=== PATIENT | male | born 1945 | race Caucasian/White ===

== ENCOUNTER 2017-11-19 13:09 | Inpatient (IN) | payer OTHER ==
[~2017-11-19] VITALS: Ht 177.8 cm; Wt 88.0 kg
--- NOTE | ~2017-11-19 | EKG ---
[place] [address] [facility] [place] [address] ELECTROCARDIOGRAM REPORT Name: TANXI Cristian Room [facility]: [facility] [id number] Admission: 11/19/17 Attend Phys: Discharge: Date of : 47 Report #: [id number] THIS REPORT FOR: //name// [facility] ED Test Date: 2017-11-19 Test Time: 13:51:33 Pat Name: XI MADDOX Department: Room: Gender: M Beater Engineer: KISHAN : 1945 Requested By: George Wood Order Number: [id number] MD: Jono Mancia Measurements Intervals [place] Rate: 91 P: 25 CT: 195 QRS: 30 QRSD: 118 T: -5 QT: 371 QTc: 457 Interpretive Statements Sinus rhythm Nonspecific intraventricular conduction delay Borderline ST elevation, anterior leads No previous ECG available for comparison Electronically Signed On 11-19-2017 15:34:54 RESIDENT MANAGER by Jono Mancia [email or web address] <ELECTRONICALLY SIGNED> By: Jono Mancia MD 11/19/17 1534 1351 1351 Jono Mancia MD /BREE
--- NOTE | ~2017-11-19 | H ---
[facility] [address] HISTORY AND PHYSICAL Name: XI MADDOX Room #: 401-I ADM IN M.R.#: [id number] Admission: 11/19/17 Attend Phys: Marco Adams MD Discharge: Date of : 47 Report #: [id number] THIS REPORT FOR: //name// CC: Anupam Adams DATE OF SERVICE: 11/19/2017 CHIEF COMPLAINT: Left leg swelling. HISTORY OF PRESENT ILLNESS: The patient is a 72-year-old male with history of hypertension, history of microscopic hematuria, cystitis, being worked up by his urologist, presented to the Emergency Room secondary to a deep vein thrombosis. The patient was seen by Dr. Enriquez, his PCP in the office for left leg swelling. He had a venous Doppler done which showed nonocclusive DVT involving the femoral vein all the way up to the calf. The patient states that his legs have been swollen for years. Apparently, he mentioned it to his doctor because his made him do it. He denies any chest pain, dizziness, palpitation. The patient was found to be tachycardic in the Emergency Room and subsequently, a CAT scan of the chest was done, which showed no evidence of any PE. The patient has microscopic hematuria and just presently worked up by his urologist. He is in fact scheduled for a cystoscopy on 12/02/2017. The patient has some mild dysuria and frequency. Denies any urinary hesitancy. No urinary retention. He has no gross hematuria. No history of any abdominal pain, nausea, vomiting or fever or chills. PAST MEDICAL HISTORY: Significant for hypertension, hematuria, sinus surgery, history of hydrocele surgery. No history of any diabetes, coronary artery disease or CVA. ALLERGIES: No known drug allergy. HOME MEDICATIONS: Reviewed, please look at the nursing documentation. SOCIAL HISTORY: Stopped smoking several years ago. No history of alcohol abuse or illicit drug abuse. FAMILY HISTORY: Significant for cancer. REVIEW OF SYSTEMS: CONSTITUTIONAL: No recent weight loss, weight gain. No fever or chills. EYES: No change in vision. [facility] [address] [place] [place] [address] HISTORY AND PHYSICAL Name: XI MADDOX Room #: 401-I [facility].#: [id number] Admission: 11/19/17 Attend Phys: Marco Adams MD Discharge: Date of : 47 Report #: [id number] THROAT: Denies any sore throat. CARDIOVASCULAR: No chest pain, dizziness, palpitations. RESPIRATORY: No cough or expectoration. GASTROINTESTINAL: As above. GENITOURINARY: As above. NEUROLOGIC: No focal numbness or weakness of the extremities. PSYCHIATRIC: No anxiety or depression. A 12-point review of system is negative other than the positive and the negative dictated in the history of present illness and the review of system. PHYSICAL EXAMINATION: VITAL SIGNS: Reveal blood pressure is 127/74, heart rate of 90 per minute, afebrile. GENERAL: The patient is awake and alert, not in acute respiratory distress. EYES: Pupils equal, reactive to light, nonicteric conjunctivae. Throat appears normal. NECK: Supple, no JVD, no bruit, no lymphadenopathy. CARDIOVASCULAR SYSTEM: S1, S2, negative S3, no murmur. CHEST: Bilateral air entry present. Clear on auscultation. ABDOMEN: Soft, bowel sounds present, no mass, no organomegaly, no tenderness. PERIPHERY: No pedal edema on the right leg, the left leg is swollen. He has 1+ pedal edema. Dorsalis pedis 1+ bilaterally. NEUROLOGICAL: No gross motor or sensory deficit. Labs reviewed. IMAGING STUDIES: CT of the chest showed no evidence of any PE. There is cardiomegaly with dense coronary artery calcifications, large hiatal hernia. CT of the abdomen and pelvis done on 09/22/2017 showed cystitis with perivascular soft tissue inflammatory stranding. LABORATORY DATA: His UA today showed 2+ protein, 2+ ketones, 3+ blood and positive for red cells and 0-5 wbc's. His BUN and creatinine are within normal limit. Troponin less than 0.04. White count is normal at 9.4. Normal hemoglobin, hematocrit and platelets. A venous Doppler study done at an outside facility showed nonocclusive DVT involving the femoral vein. ASSESSMENT AND PLAN: 1. Deep venous thrombosis in the left femoral vein. The patient will be started on Lovenox. I did discuss with him the possibility of worsening hematuria. We need to monitor him closely. Urologist will be consulted. Anticipate that we will switch him to Xarelto or Coumadin if he tolerates Lovenox. The CT scan showed no evidence of any pulmonary embolism. 2. Hematuria. Urologist will be consulted. We will go ahead and obtain a repeat CT of the abdomen and pelvis. The patient is scheduled for a cystoscopy [facility] [address] [place] [address] HISTORY AND PHYSICAL Name: XI MADDOX Room #: 401-I ADM IN M.R.#: [id number] Admission: 11/19/17 Attend Phys: Marco Adams MD Discharge: Date of : 47 Report #: [id number] on 12/02/2017. 3. Deep venous thrombosis prophylaxis, he is already on Lovenox. 4. Hypertension. The patient will be continued on his Norvasc. Treatment plan has been explained to the patient and the family in detail. <ELECTRONICALLY SIGNED> By: Marco Adams MD 11/20/17 1338 1708 1753 Marco Adams MD /nt
[~2017-11-19 13:09] MED LIST: CIPROFLOXACIN500 M1 PO
[2017-11-19 13:14] VITALS: BP 121/82
[2017-11-19 13:46] LABS: ABSOLUTE NEUTROPHILS 7.3 thou/uL (1.4-8.2); BASOPHILS 0.6 % (0.0-2.0); EOSINOPHILS 0.6 % (0.0-3.0); HEMATOCRIT 46.2 % (42.0-52.0); HEMOGLOBIN 15.9 gm/dL (14.0-18.0); LYMPHOCYTES 11.7 % (24.0-44.0); MCH 31.5 pg (26.0-34.0); MCHC 34.5 g/dL (28.0-37.0); MCV 91.4 fL (80.0-100.0); MONOCYTES 10.2 % (1.0-8.0); PLATELET COUNT 185 thou/uL (150-400); POLYS 76.9 % (36.0-66.0); RBC 5.06 mil/uL (4.50-6.00); WBC 9.4 thou/uL (4.0-11.0)
[2017-11-19 13:48] LABS: ANION GAP 12 mmol/L (7-16); BUN 15 mg/dL (7-18); CALCIUM 9.8 mg/dL (8.5-10.1); CHLORIDE 102 mmol/L (98-107); CO2 25 mmol/L (21-32); CREATININE 1.2 mg/dL (0.7-1.3); GLUCOSE 99 mg/dL (74-106); POTASSIUM 3.8 mmol/L (3.5-5.1); SODIUM 139 mmol/L (136-145)
[2017-11-19] MEDS ORDERED: AMLODIPINE BESY10 MG PO (13:52)
[2017-11-19] MEDS ORDERED: FLOMAX0.4 MG PO (13:53)
[2017-11-19] MEDS ORDERED: PREVACID15 MG PO (13:53)
[2017-11-19] MEDS ORDERED: MOBIC15 MG PO (13:54)
[2017-11-19 13:56] LABS: TROPONIN-I < 0.04 ng/mL (<0.06)
[2017-11-19 14:29] LABS: URINE BLOOD 3+ (Negative); URINE CLARITY CLEAR; URINE COLOR YELLOW; URINE GLUCOSE-RANDOM* NEGATIVE (Negative); URINE KETONES 2+ (Negative); URINE LEUKOCYTES-REFLEX NEGATIVE (Negative); URINE NITRITE-REFLEX NEGATIVE (Negative); URINE PROTEIN (DIPSTICK) 2+ (Negative); URINE UROBILINOGEN 0.2 E.U./dl (0.2-1.0)
[2017-11-19 14:33] LABS: URINE BILIRUBIN NEGATIVE (Negative)
[2017-11-19 14:44] LABS: BACTERIA-REFLEX 1-9 Few /HPF (None Seen); SQUAMOUS None Seen /LPF (0-3); URINE RBC >20 Many /HPF (0-2); URINE WBC-REFLEX 0-5 Rare /HPF (0-5)
[2017-11-19 14:45] LABS: CASTS None Seen /LPF (None Seen); CRYSTALS None Seen /LPF (None Seen)
[2017-11-19 16:53] VITALS: BP 125/73
[2017-11-19 17:40] VITALS: BP 113/67
[2017-11-19 17:58] VITALS: BP 117/78
[2017-11-19 20:00] VITALS: BP 103/64
[2017-11-20] VITALS: BP 105/66
[2017-11-20 04:00] VITALS: BP 114/81
[2017-11-20 05:17] LABS: HEMATOCRIT 42.5 % (42.0-52.0); HEMOGLOBIN 14.4 gm/dL (14.0-18.0); MCH 31.1 pg (26.0-34.0); MCHC 33.9 g/dL (28.0-37.0); PLATELET COUNT 167 thou/uL (150-400); RBC 4.62 mil/uL (4.50-6.00); RDW 15.2 % (10.5-14.5); WBC 5.9 thou/uL (4.0-11.0)
[2017-11-20 05:25] LABS: CREATININE 0.8 mg/dL (0.7-1.3); MAGNESIUM 1.6 mg/dL (1.8-2.4)
[2017-11-20 05:28] LABS: POTASSIUM 2.9 mmol/L (3.5-5.1)
[2017-11-20 07:47] LABS: ABSOLUTE NEUTROPHILS 3.9 thou/uL (1.4-8.2); ATYPICAL LYMPHS 1 %
[2017-11-20 07:48] LABS: ANISOCYTOSIS 1+
[2017-11-20 08:00] VITALS: BP 119/82
[2017-11-20 15:47] VITALS: BP 105/65
[2017-11-20 17:41] LABS: MAGNESIUM 1.6 mg/dL (1.8-2.4)
[2017-11-20 17:44] LABS: POTASSIUM 4.5 mmol/L (3.5-5.1)
[2017-11-20 20:00] VITALS: BP 98/61
[2017-11-21 04:00] VITALS: BP 109/67
[2017-11-21 05:53] LABS: HEMATOCRIT 42.9 % (42.0-52.0); HEMOGLOBIN 14.5 gm/dL (14.0-18.0); MCH 31.2 pg (26.0-34.0); MCHC 33.7 g/dL (28.0-37.0); MCV 92.4 fL (80.0-100.0); PLATELET COUNT 161 thou/uL (150-400); RBC 4.64 mil/uL (4.50-6.00); RDW 15.2 % (10.5-14.5)
[2017-11-21 06:08] LABS: CALCIUM 9.1 mg/dL (8.5-10.1); CREATININE 0.9 mg/dL (0.7-1.3); MAGNESIUM 2.1 mg/dL (1.8-2.4)
[2017-11-21 06:28] LABS: POTASSIUM 3.4 mmol/L (3.5-5.1)
[2017-11-21 07:28] VITALS: BP 123/77
[2017-11-21 09:35] LABS: ABSOLUTE NEUTROPHILS 4.1 thou/uL (1.4-8.2); ANISOCYTOSIS SLIGHT
[2017-11-21] MEDS ORDERED: ENOXAPARIN80 MG/0.1 SUBQ (11:59)
[2017-11-21] MEDS ORDERED: PRADAXA150 MG PO (12:06)
[2017-11-21 12:35] VITALS: BP 123/77
== END 2017-11-21 13:35 | disposition home or self-care (01) | DRG 300 ==
LOC: ER 13:09 → EROBS 16:13 → 4N 16:13 → ENTRNSPT 11-21 13:23 → 4N 11-21 13:35
PROVIDERS: Emergency Medicine; Internal Medicine; Nurse Practitioner Family
DX: I82.412 Acute embolism and thrombosis of left femoral vein (principal); N17.9 Acute kidney failure, unspecified; R31.9 Hematuria, unspecified; I10 Essential (primary) hypertension; Z79.899 Other long term (current) drug therapy; Z87.891 Personal history of nicotine dependence
CPT/HCPCS: 10790

== ENCOUNTER 2017-11-25 16:44 | Emergency (ER) | payer OTHER ==
[~2017-11-25] VITALS: Ht 177.8 cm; Wt 88.5 kg
[~2017-11-25 16:44] MED LIST changes: +AMLODIPINE BESY10 MG PO; +ENOXAPARIN80 MG/0.1 SUBQ; +FLOMAX0.4 MG PO; +MOBIC15 MG PO; +PRADAXA150 MG PO; +PREVACID15 MG PO
[2017-11-25 19:29] LABS: ABSOLUTE NEUTROPHILS 4.8 thou/uL (1.4-8.2); BASOPHILS 0.4 % (0.0-2.0); EOSINOPHILS 2.3 % (0.0-3.0); HEMATOCRIT 40.1 % (42.0-52.0); HEMOGLOBIN 13.7 gm/dL (14.0-18.0); LYMPHOCYTES 16.6 % (24.0-44.0); MCH 31.2 pg (26.0-34.0); MCHC 34.2 g/dL (28.0-37.0); MCV 91.2 fL (80.0-100.0); MONOCYTES 9.4 % (1.0-8.0); PLATELET COUNT 157 thou/uL (150-400); POLYS 71.3 % (36.0-66.0); RBC 4.39 mil/uL (4.50-6.00); RDW 14.8 % (10.5-14.5); WBC 6.7 thou/uL (4.0-11.0)
[2017-11-25 19:41] LABS: CALCIUM 8.6 mg/dL (8.5-10.1); CREATININE 0.9 mg/dL (0.7-1.3); POTASSIUM 3.2 mmol/L (3.5-5.1)
[2017-11-25 19:43] LABS: APTT 31.1 Seconds (24.5-32.8); PROTIME 10.1 Seconds (9.3-11.4)
[2017-11-25] MEDS ORDERED: ZOFRAN ODT4 MG PO (19:59)
[2017-11-25 20:21] VITALS: BP 107/68
== END 2017-11-25 20:23 | disposition home or self-care (01) ==
LOC: ER 16:44
PROVIDERS: Emergency Medicine
DX: K52.9 Noninfective gastroenteritis and colitis, unspecified (principal); Z86.718 Personal history of other venous thrombosis and embolism; Z87.891 Personal history of nicotine dependence; W01.0XXA Fall on same level from slipping, tripping and stumbling without subsequent striking against object, initial encounter; Y93.89 Activity, other specified; Y92.89 Other specified places as the place of occurrence of the external cause; Y99.8 Other external cause status

== ENCOUNTER 2018-05-31 17:20 | Emergency (ER) | payer OTHER ==
[~2018-05-31] VITALS: Ht 180.3 cm; Wt 80.7 kg
[~2018-05-31 17:20] MED LIST changes: +ZOFRAN ODT4 MG PO
[2018-05-31 18:02] LABS: ABSOLUTE NEUTROPHILS 6.6 thou/uL (1.4-8.2); BASOPHILS 0.5 % (0.0-2.0); EOSINOPHILS 0.8 % (0.0-3.0); HEMATOCRIT 39.4 % (42.0-52.0); HEMOGLOBIN 13.7 gm/dL (14.0-18.0); LYMPHOCYTES 13.5 % (24.0-44.0); MCH 32.3 pg (26.0-34.0); MCHC 34.7 g/dL (28.0-37.0); MCV 93.3 fL (80.0-100.0); MONOCYTES 10.8 % (1.0-8.0); PLATELET COUNT 151 thou/uL (150-400); POLYS 74.4 % (36.0-66.0); RBC 4.23 mil/uL (4.50-6.00); WBC 8.9 thou/uL (4.0-11.0)
[2018-05-31] MEDS ORDERED: PLAVIX 75 MG TA75 MG PO (18:03)
[2018-05-31] MEDS ORDERED: PROSCAR 5MG TABL5 MG PO (18:03)
[2018-05-31 18:07] LABS: URINE BILIRUBIN NEGATIVE (Negative); URINE BLOOD 3+ (Negative); URINE GLUCOSE-RANDOM* NEGATIVE (Negative); URINE KETONES 1+ (Negative); URINE LEUKOCYTES NEGATIVE (Negative); URINE NITRITE NEGATIVE (Negative); URINE PROTEIN (DIPSTICK) 2+ (Negative); URINE UROBILINOGEN 0.2 E.U./dl (0.2-1.0)
[2018-05-31 18:11] LABS: URINE CLARITY HAZY; URINE COLOR REDDISH
[2018-05-31 18:11] LABS: CALCIUM 9.1 mg/dL (8.5-10.1); POTASSIUM 3.9 mmol/L (3.5-5.1)
[2018-05-31 18:15] LABS: BACTERIA 1-9 Few /HPF (None Seen); CASTS None Seen /LPF (None Seen); CRYSTALS None Seen /LPF (None Seen); SQUAMOUS None Seen /LPF (0-3); URINE RBC >20 Many /HPF (0-2); URINE WBC 0-5 Rare /HPF (0-5)
== END 2018-05-31 18:50 | disposition home or self-care (01) ==
LOC: ER 17:20
PROVIDERS: Emergency Medicine
DX: R31.9 Hematuria, unspecified (principal); R33.9 Retention of urine, unspecified; Z87.891 Personal history of nicotine dependence

== ENCOUNTER 2018-06-27 14:34 | Inpatient (IN) | payer OTHER ==
[~2018-06-27] VITALS: Ht 152.4 cm; Wt 75.2 kg
--- NOTE | ~2018-06-27 | EKG ---
[place] [address] [facility] [place] [address] ELECTROCARDIOGRAM REPORT Name: TANXI Cristian Room #: 360-[facility] IN M.R.#: [id number] Admission: 06/27/18 Attend Phys: Wilfredo Johnson MD Discharge: 06/29/18 Date of : 47 Report #: [id number] THIS REPORT FOR: //name// [facility] ED Test Date: 2018-06-27 Test Time: 17:53:30 Pat Name: XI MADDOX Department: Room: [facility] Gender: M Cylinder Valve Repairer: [facility] : 1945 Requested By: Jessica Stearns Order Number: [id number] MD: Huseyin Pro Measurements Intervals [place] Rate: 85 P: 70 AR: 168 QRS: -2 QRSD: 92 T: 12 QT: 391 QTc: 465 Interpretive Statements Sinus rhythm Low voltage, extremity leads Compared to ECG 11/19/2017 13:51:33 No significant change was found Electronically Signed On 06-29-2018 15:23:51 CDT by Huseyin Pro [email or web address] <ELECTRONICALLY SIGNED> By: Huseyin Pro MD, [facility] 06/29/18 1523 1753 1753 Huseyin Pro MD, [facility] /EPI
[~2018-06-27 14:34] MED LIST changes: +PLAVIX 75 MG TA75 MG PO; +PROSCAR 5MG TABL5 MG PO
[2018-06-27 16:08] VITALS: BP 107/66
[2018-06-27 18:34] LABS: BASOPHILS 0.5 % (0.0-2.0); EOSINOPHILS 1.9 % (0.0-3.0); HEMATOCRIT 33.6 % (42.0-52.0); HEMOGLOBIN 11.5 gm/dL (14.0-18.0); LYMPHOCYTES 10.5 % (24.0-44.0); MCH 31.3 pg (26.0-34.0); MCHC 34.2 g/dL (28.0-37.0); MCV 91.4 fL (80.0-100.0); MONOCYTES 11.8 % (1.0-8.0); PLATELET COUNT 220 thou/uL (150-400); POLYS 75.3 % (36.0-66.0); RBC 3.67 mil/uL (4.50-6.00); RDW 13.1 % (10.5-14.5)
[2018-06-27 18:40] LABS: CALCIUM 8.2 mg/dL (8.5-10.1); CREATININE 0.9 mg/dL (0.7-1.3); POTASSIUM 3.1 mmol/L (3.5-5.1)
[2018-06-27 18:45] LABS: APTT 27.7 Seconds (24.5-32.8); INR 1.1; PROTIME 10.9 Seconds (9.3-11.4)
[2018-06-27 18:56] LABS: ALBUMIN 2.9 g/dL (3.4-5.0); TOTAL PROTEIN 6.2 g/dL (6.4-8.2)
[2018-06-27 19:16] VITALS: BP 107/66
[2018-06-27 19:23] LABS: TSH 3.767 uIU/mL (0.358-3.740)
[2018-06-27 20:10] VITALS: BP 107/72
[2018-06-27] MEDS ORDERED: CALCIUM 500 +1 EAC5 PO (22:31)
[2018-06-27] MEDS ORDERED: PLAVIX 75 MG TA75 M1 PO (22:33)
[2018-06-27 23:58] VITALS: BP 102/65
[2018-06-28 03:35] VITALS: BP 112/67
[2018-06-28 04:20] LABS: HEMATOCRIT 37.6 % (42.0-52.0); HEMOGLOBIN 12.6 gm/dL (14.0-18.0); MCH 30.9 pg (26.0-34.0); MCHC 33.6 g/dL (28.0-37.0); MCV 92.2 fL (80.0-100.0); RBC 4.08 mil/uL (4.50-6.00); RDW 13.3 % (10.5-14.5); WBC 6.7 thou/uL (4.0-11.0)
[2018-06-28 04:29] LABS: CALCIUM 8.5 mg/dL (8.5-10.1); CREATININE 0.9 mg/dL (0.7-1.3); MAGNESIUM 1.2 mg/dL (1.8-2.4); POTASSIUM 3.5 mmol/L (3.5-5.1)
[2018-06-28 07:39] VITALS: BP 123/77
[2018-06-28 12:00] VITALS: BP 93/43
[2018-06-28 16:00] VITALS: BP 100/64
[2018-06-28 19:22] VITALS: BP 98/60
[2018-06-29 04:00] VITALS: BP 104/67
[2018-06-29 06:36] LABS: HEMATOCRIT 36.4 % (42.0-52.0); HEMOGLOBIN 12.4 gm/dL (14.0-18.0); MCH 31.3 pg (26.0-34.0); MCV 92.1 fL (80.0-100.0); RBC 3.95 mil/uL (4.50-6.00); RDW 13.4 % (10.5-14.5); WBC 4.5 thou/uL (4.0-11.0)
[2018-06-29 06:44] LABS: CALCIUM 8.1 mg/dL (8.5-10.1); CREATININE 0.7 mg/dL (0.7-1.3); MAGNESIUM 1.5 mg/dL (1.8-2.4)
[2018-06-29 08:32] VITALS: BP 127/83
[2018-06-29] MEDS ORDERED: ENOXAPARIN80 MG/0.1 SUBQ (13:09)
[2018-06-29 14:01] VITALS: BP 127/83
[2018-06-29 14:29] VITALS: BP 127/83
== END 2018-06-29 14:38 | disposition home or self-care (01) | DRG 175 ==
LOC: ER 14:34 → EROBS 18:28 → 3W 19:56
PROVIDERS: Emergency Medicine; Internal Medicine
DX: I26.99 Other pulmonary embolism without acute cor pulmonale (principal); E43 Unspecified severe protein-calorie malnutrition; I82.413 Acute embolism and thrombosis of femoral vein, bilateral; I82.433 Acute embolism and thrombosis of popliteal vein, bilateral; I82.442 Acute embolism and thrombosis of left tibial vein; E87.6 Hypokalemia; E83.42 Hypomagnesemia; Z86.718 Personal history of other venous thrombosis and embolism; Z85.51 Personal history of malignant neoplasm of bladder; Z87.891 Personal history of nicotine dependence; Z95.5 Presence of coronary angioplasty implant and graft; Z68.32 Body mass index [BMI] 32.0-32.9, adult; Z79.899 Other long term (current) drug therapy; Z95.820 Peripheral vascular angioplasty status with implants and grafts
CPT/HCPCS: 10879

== ENCOUNTER 2019-05-11 11:18 | Emergency (ER) | payer OTHER ==
[~2019-05-11] VITALS: Ht 180.3 cm; Wt 72.6 kg
[~2019-05-11 11:18] MED LIST changes: +CALCIUM 500 +1 EAC5 PO; +PLAVIX 75 MG TA75 M1 PO
[2019-05-11 11:59] LABS: ABSOLUTE NEUTROPHILS 5.6 thou/uL (1.4-8.2); BASOPHILS 0.7 % (0.0-2.0); EOSINOPHILS 0.6 % (0.0-3.0); HEMATOCRIT 27.3 % (42.0-52.0); HEMOGLOBIN 9.5 gm/dL (14.0-18.0); LYMPHOCYTES 14.4 % (24.0-44.0); MCH 31.8 pg (26.0-34.0); MONOCYTES 6.8 % (1.0-8.0); PLATELET COUNT 160 thou/uL (150-400); POLYS 77.5 % (36.0-66.0); RDW 14.1 % (10.5-14.5); WBC 7.3 thou/uL (4.0-11.0)
[2019-05-11 12:17] LABS: ANION GAP 14 mmol/L (7-16); CALCIUM 9.2 mg/dL (8.5-10.1); CHLORIDE 93 mmol/L (98-107); CO2 23 mmol/L (21-32); CREATININE 2.8 mg/dL (0.7-1.3); GLUCOSE 93 mg/dL (74-106); MAGNESIUM 1.4 mg/dL (1.8-2.4); POTASSIUM 4.2 mmol/L (3.5-5.1); SODIUM 130 mmol/L (136-145); TROPONIN-I <0.06 ng/mL (<0.06)
[2019-05-11 13:05] LABS: BUN 36 mg/dL (7-18)
[2019-05-11 13:14] VITALS: BP 120/64
--- NOTE | 2019-05-11 14:00 | EKG ---
[place] [address] [facility] [place] [address] ELECTROCARDIOGRAM REPORT Name: FREDRICK MADDOX [facility] [id number] ������������������ Admission: 05/11/19 ������������������ Attend Phys: Discharge: 05/11/19 ������������������ Date of : 47 Report #: [id number] ����������������������������������������������������������������� [id number] THIS REPORT FOR: //name// [facility] ED Test Date: 2019-05-11 Test Time: 11:58:04 Pat Name: FREDRICK MADDOX Department: Room: Gender: Quality Assurance Monitor Body: [facility] : 1945 Requested By: Fredrick Carroll Order Number: [id number] MD: Jono Mancia Measurements Intervals [place] Rate: 103 P: 68 NM: 206 QRS: -55 QRSD: 96 T: -18 QT: 354 QTc: 464 Interpretive Statements Sinus tachycardia Left axis deviation Low voltage, extremity leads Compared to ECG 06/27/2018 17:53:30 Left-axis deviation now present Sinus rhythm no longer present Electronically Signed On 05-11-2019 14:00:33 CDT by Jono Mancia [email or web address] ��������������������������������������������� <ELECTRONICALLY SIGNED> ���������������������������������������� By: Jono Mancia MD ��������������������������������������������� 05/11/19 1400 1158 1158 Jono Mancia MD /BREE
== END 2019-05-11 13:15 | disposition home or self-care (01) ==
LOC: ER 11:18
PROVIDERS: Emergency Medicine
DX: S00.03XA Contusion of scalp, initial encounter (principal); E83.42 Hypomagnesemia; I10 Essential (primary) hypertension; Z87.891 Personal history of nicotine dependence; Z86.718 Personal history of other venous thrombosis and embolism; W18.39XA Other fall on same level, initial encounter; Y92.89 Other specified places as the place of occurrence of the external cause; Y93.89 Activity, other specified; Y99.8 Other external cause status